=== PATIENT | female | born 1965 | race Caucasian/White ===

== ENCOUNTER 2021-09-16 13:01 | Emergency (ER) | payer OTHER ==
[2021-09-16 15:21] LABS: HEMOGLOBIN 8.5 gm/dl (12.3-15.3); RED BLOOD COUNT 4.01 M/UL (4.00-5.10); WHITE BLOOD COUNT 9.5 K/UL (4.5-11.0)
[2021-09-16 15:51] LABS: BUN/CREATININE RATIO 27 (0-10)
== END 2021-09-16 21:12 | disposition home or self-care (01) ==
LOC: ER1 13:01
PROVIDERS: Family Medicine
DX: R41.82 Altered mental status, unspecified (principal); I11.0 Hypertensive heart disease with heart failure; I50.9 Heart failure, unspecified; E11.9 Type 2 diabetes mellitus without complications; Z88.6 Allergy status to analgesic agent; Z91.041 Radiographic dye allergy status
CPT/HCPCS: 70450; 71045; 80053; 80307; 81001; 82140; 82550; 82553; 83735; 84484; 85025; 93005; 99285; G0480